=== PATIENT | male | born 1950 | race Caucasian/White ===

== ENCOUNTER 2021-08-11 02:05 | Emergency (ER) | payer SELFPAY ==
--- NOTE | ~2021-08-11 | CT_ITS ---
EXAMINATION: NONCONTRAST HEAD CT NONCONTRAST CERVICAL SPINE CT INDICATION INFORMATION: Fall COMPARISON: None TECHNIQUE: Separate noncontrast CT examinations of the head and cervical spine were performed. Coronal head CT images and coronal and sagittal cervical spine images were created at the technologist workstation. DLP: 11:30 mGy-cm DOSE LOWERING TECHNIQUES: This CT examination was performed using dose optimization techniques as appropriate, variously including the following: - Automated exposure control - Adjustment of mA and/or kV according to patient size (this includes techniques or standardized protocols for targeted exams were dose is matched to indication/reason for exam; i.e. extremities or head) - Use of iterative reconstruction technique FINDINGS: Head: There is no evidence of acute intracranial hemorrhage or territorial infarction. No abnormal mass-effect or midline shift is seen. Alvarez to white matter differentiation is well preserved. No extra-axial fluid collections are identified. The ventricles are normal in size. There is no abnormal attenuation within the brain parenchyma. No acute fracture is seen. There is posterior scalp soft tissue swelling and laceration near the vertex. Partially opacified left mastoid air cells. The visualized portions of the paranasal sinuses are well-aerated. Cervical spine: There is anatomic alignment of the vertebral bodies and posterior elements. Vertebral body heights are maintained. There is moderate disc space narrowing throughout the cervical spine, greatest from C3 through C6 with associated endplate osteophytes. Mild to moderate bilateral facet arthropathy. No evidence of acute fracture. No prevertebral soft tissue swelling. Visualized portions of the lung apices are unremarkable. The thyroid gland is unremarkable. CT/CT cervical spine wo con IMPRESSION: Posterior scalp soft tissue injury near the vertex. No acute intracranial findings. No acute findings identified in the cervical spine; multilevel degenerative changes.
[2021-08-11 02:13] VITALS: BP 112/68; BP 121/72; PULSE 73; PULSE 74; RESP 18; TEMP 36.4; O2SAT 97; O2SAT 98; BMI 26.5
--- NOTE | 2021-08-11 02:13 | ED.HEATRA ---
HPI - Head Injury General Chief complaint: Fall Stated complaint: ETOH/HEAD LAC/+HEAD STRIKE Time Seen by Provider: 08/11/21 02:12 Source: patient Mode of arrival: ambulatory Limitations: no limitations History of Present Illness Complaint: head injury and fall Onset (ago): minute(s) (just [employer]IAN) Mechanism of Injury: fall (tripped in parking lot outside bar hit back of head on ground) Place: other (outside bar) Loss of Consciousness: no Location of injury: parietal Severity: mild Quality: dull Radiation: none Other Injuries: none Context: recent alcohol use Associated symptoms: denies other symptoms Related Data Allergies Allergy/AdvReac Type Severity Reaction Status Date / Time No Known Allergies Allergy Verified 08/11/21 02:12 Review of Systems Review of Systems: Constitutional : No Fever, No Chills, No Fatigue ENT/Mouth : No sore throat, No Rhinorrhea Eyes: No Eye Pain, No Swelling, No Redness Cardiovascular : No Chest Pain, No SOB, No Dyspnea on Exertion Respiratory : No Cough, No Sputum Gastrointestinal : No Nausea, No Vomiting, No Diarrhea, No abdominal Pain Genitourinary : No Dysuria, No Urinary Frequency, No Hematuria, Musculoskeletal : No joint pain, No Myalgias, No Joint Swelling Skin : No Skin Lesions, No rash, pos laceration Neuro : No Weakness, No Numbness, No Dizziness, no Headache Psych : No Anxiety/Panic, No Depression Heme/Lymph: No Bruising, No Bleeding,No Lymphadenopathy Endocrine : No Polyuria, No Polydipsia All other systems reviewed and are negative [facility] Past Medical History Attestation statement: The following information was validated with the patient. Medical History Alcohol abuse Social History Social History Alcohol intake: current Patient Tobacco Use Status: Never used Tobacco Advance Directives: No Advance Directives Information Provided: No Physical Exam Vital Signs: Vital Signs: Last Vital Signs Temp 97.5 F 08/11/21 04:09 Pulse 79 08/11/21 04:09 Resp 18 08/11/21 04:09 BP 120/63 08/11/21 04:09 Pulse Ox 100 08/11/21 04:09 BMI result Body Mass Index 26.5 Appearance: Alert. Oriented X3. No acute distress. ETOH odor Eyes: Pupils equal, round and reactive to light. ENT: Pharynx normal. Posterior scalp R side stellate laceration jagged 5cm Neck: Normal inspection. Neck supple. CVS: Normal heart rate and rhythm. Pulses normal. Respiratory: No respiratory distress. Breath sounds normal. Abdomen: Soft and nontender. Skin: Skin warm and dry. Normal skin color. Normal skin turgor. Extremities: No lower extremity edema. Neuro: Oriented X 3. No motor deficit. No sensory deficit. Course Course Course Narrative: alert and oriented x 3, GCS 15, needs sober ride home this morning negative CT scans of head MDM - Head Injury MDM Narrative Medical decision making narrative: 71 yo male hx of ETOH abuse denies other medical problems, denies DOAC UTD on tetanus was drinking at a bar tripped outside in parking lot and hit head no LOC not on ground for long at this time isolated head injury with laceration - will need wound repair, CT head/cervical spine. Dispo per results and findings. Procedures Laceration Laceration 1: Site: scalp Side (If applicable): right Size (cm): 5 Description: stellate Depth: simple, single layer Local Anesthetic: other anesthetic (LET) Pre-repair: wound explored and irrigated extensively Skin layer closed with: other (9 darryl) Discharge Plan Discharge Clinical Impression: Alcohol intoxication Qualifiers: Complication of substance-induced condition: uncomplicated Qualified Code(s): F10.920 - Alcohol use, unspecified with intoxication, uncomplicated Head injury Qualifiers: Encounter type: initial encounter Qualified Code(s): S09.90XA - Unspecified injury of head, initial encounter Laceration of scalp Qualifiers: Encounter type: initial encounter Qualified Code(s): S01.01XA - Laceration without foreign body of scalp, initial encounter Patient Disposition: Home, Self-Care Instructions: Laceration (ED), Head Injury (ED), Alcohol Intoxication (ED) Additional Instructions: return to ED for any worsening symptoms or concerns it is okay to shower with darryl - but do not swim or soak. monitor for redness, fevers, yellow drainage CT scans of head and neck were negative for trauma darryl come out in 10 days - this can be done at your doctors, urgent care or emergency department
[2021-08-11] MEDS: Lidocaine 4 % Cream KIT 1 APPL TOPICAL (02:30)
--- NOTE | 2021-08-11 02:35 | PC.NURSE ---
Pt has laceration on his occiput sustained when falling d/t ETOH intoxication. Wound was irrigated by Carlo JOSE, Lidocaine cream applied and area prepared for stapling for Dr. Zamorano.
[2021-08-11 04:09] VITALS: BP 120/63; PULSE 79; RESP 18; TEMP 36.4; O2SAT 100
== END 2021-08-11 04:54 | disposition home or self-care (01) ==
PROVIDERS: Emergency Provider Emergency Medicine
DX: S01.01XA Laceration without foreign body of scalp, initial encounter (principal); M54.2 Cervicalgia; F10.920 Alcohol use, unspecified with intoxication, uncomplicated; W01.10XA Fall on same level from slipping, tripping and stumbling with subsequent striking against unspecified object, initial encounter; Y93.9 Activity, unspecified; Y92.9 Unspecified place or not applicable; Y99.9 Unspecified external cause status
CPT/HCPCS: 12002; 70450; 72125; 99281; 99284